=== PATIENT | female | born 1985 | race Caucasian/White ===

== ENCOUNTER 2019-07-28 00:39 | Outpatient (CLI) | payer OTHER, SELFPAY ==
[2019-07-28 16:19] LABS: SARS-CoV-2 RNA PCR Negative
== END 2019-07-28 00:40 | disposition home or self-care (01) ==
LOC: ANHCOVIDDT 00:39
PROVIDERS: PCP Family Medicine; Visit Provider Internal Medicine Gastroenterology
DX: Z01.818 Encounter for other preprocedural examination (principal); Z11.59 Encounter for screening for other viral diseases
CPT/HCPCS: 87635; C9803; U0003

== ENCOUNTER 2019-07-31 00:48 | Day surgery (SDC) | payer OTHER, SELFPAY ==
[2019-07-24 12:42] VITALS: BMI 36.3
--- NOTE | 2019-07-31 08:13 | WPDANESEPPF ---
Anes - Initial Pre Proc Eval Procedure: Operation Date: 07/31/19 11:00 Proposed Procedures p Colonoscopy - Jose Martin Penaloza MD Date/Time: 07/31/19 08:13 Surgeon: Jose Martin Penaloza MD Pre Op Diagnosis: Rectal Bleeding Patient Data Age: 34 Gender: F Height: 1.91 m Weight: 132 kg Allergies Allergy/AdvReac Type Severity Reaction Status Date / Time No Known Allergies Allergy Verified 07/24/19 12:44 Home Medications Medication Instructions Recorded Confirmed Type labetalol 200 mg tablet 400 mg PO Q12H #120 tablet 12/14/18 07/24/19 Rx sertraline 100 mg tablet 100 mg PO DAILY #30 tablet 04/02/19 07/24/19 Rx peg 3350-electrolytes 236 240 ml PO Q10M #4000 ml 07/27/19 Rx gram-22.74 gram-6.74 gram-5.86 gram solution Patient hx anesthesia problems: none Family hx anesthesia problems: none PMFSH Past Medical History Medical History (Updated 07/31/19 @ 08:14 by Dennis Duff MD) Depression Essential (primary) hypertension Generalized anxiety disorder GERD without esophagitis Obesity Vitamin D deficiency Social History Social History Smoking status: Never smoker Second hand tobacco smoke exposure: No Alcohol intake: current Substance use type: does not use Additional living arrangements comments: and 2 sons 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 Questions were solicited and answers provided to the satisfaction of the patient/family/POA.
[2019-07-31 09:52] VITALS: BP 144/84; PULSE 87; RESP 18; TEMP 36.1; O2SAT 98
[2019-07-31] MEDS: LACTATED RINGERS 1,000 ML 150 ML IV CONT (10:07)
--- NOTE | 2019-07-31 11:11 | SUR.PREOP ---
Patient informed that Dr Salinas is running behind. Patient states her family is not in the parking lot. She stated that she will text her ride and let him know.
--- NOTE | 2019-07-31 11:39 | WPDHPUPDATE1 ---
History and Physical Update Update Date/Time: 07/31/19 11:39 History and Physical has been reviewed, including an updated exam of the patient. There are NO changes in the patient's condition. Risks, benefits, and alternatives have been discussed and questions answered. Patient agrees to proceed with procedure.
--- NOTE | 2019-07-31 11:48 | SUR.OPER ---
1138 UPDATED FAMILY (NICOLAS) TAKING PATIENT TO THE PROCEDURE ROOM
[2019-07-31 12:08] VITALS: BP 95/51; PULSE 66; RESP 16; O2SAT 98
[2019-07-31 12:18] VITALS: BP 100/61; PULSE 65; RESP 18; O2SAT 99
[2019-07-31 12:28] VITALS: BP 122/71; PULSE 67; RESP 18; O2SAT 99
== END 2019-07-31 12:34 | disposition home or self-care (01) ==
PROVIDERS: PCP Family Medicine; Visit Provider Internal Medicine Gastroenterology
PROC: 0DJD8ZZ Inspection of Lower Intestinal Tract, Via Natural or Artificial Opening Endoscopic (ICD-10-PCS; CPT 45378; principal; 2019-07-31 11:00)
DX: K62.5 Hemorrhage of anus and rectum (principal); D12.3 Benign neoplasm of transverse colon; K64.8 Other hemorrhoids; I10 Essential (primary) hypertension; K21.9 Gastro-esophageal reflux disease without esophagitis; E55.9 Vitamin D deficiency, unspecified; F41.1 Generalized anxiety disorder; F32.9 Major depressive disorder, single episode, unspecified; E66.9 Obesity, unspecified; Z68.36 Body mass index [BMI] 36.0-36.9, adult
CPT/HCPCS: 45385; 88305; J2704; J7120

== ENCOUNTER 2021-09-10 08:14 | Outpatient (CLI) | payer OTHER, SELFPAY ==
[2021-09-10 19:07] LABS: Basophils Absolute Auto 0.1 K/mm3 (0.0-0.1); Basophils Percent Auto 0.9 % (0.2-1.2); Eosinophils Absolute Auto 0.4 K/mm3 (0-0.3); Eosinophils Percent Auto 4.6 % (0-4.4); Hematocrit 40.5 % (37.0-47.0); Hemoglobin 12.5 g/dL (12.0-15.0); Immature Granulocyte Absolute 0.03 K/mm3 (0.00-0.031); Immature Granulocyte Percent A 0.4 % (0-0.5); Lymphocytes Absolute Auto 1.83 K/mm3 (0.9-3.2); Lymphocytes Percent Auto 22.5 % (18.3-44.2); Mean Corpuscular HGB Conc 30.9 g/dl (32-36); Mean Corpuscular Hemoglobin 25.8 pg (26-34); Mean Corpuscular Volume 83.5 fl (80-100); Mean Platelet Volume 10.7 fl (7.4-10.4); Monocytes Absolute Auto 0.5 K/mm3 (0.1-0.6); Monocytes Percent Auto 6.3 % (2.6-8.5); Neutrophils Absolute Auto 5.3 K/mm3 (1.3-6.7); Neutrophils Percent Auto 65.3 % (45.5-73.1); Platelet Count Result 297 k/mm3 (150-375); Red Blood Count 4.85 M/mm3 (4.2-5.4); Red Cell Distribution Width 14.2 % (11.5-14.5); White Blood Count 8.1 K/mm3 (4.5-10.0)
[2021-09-10 19:32] LABS: Sodium 142 mmol/L (137-145)
[2021-09-10 19:33] LABS: Alanine Aminotransferase 13 U/L (6-35); Albumin Level 4.2 g/dL (3.5-5.1); Alkaline Phosphatase 111 U/L (38-126); Anion Gap 9 mmol/L (8-16); Aspartate Amino Transferase 31 U/L (14-36); Bilirubin,Total 0.6 mg/dL (0.2-1.3); Blood Urea Nitrogen 16 mg/dL (7-17); Calcium 8.5 mg/dL (8.4-10.2); Carbon Dioxide 27 mmol/L (22-30); Chloride 106 mmol/L (98-107); Estimated Glomerular Filt Rate > 60; Glucose 112 mg/dL (65-110); Potassium 4.1 mmol/L (3.4-5.0)
== END 2021-09-10 08:15 | disposition home or self-care (01) ==
PROVIDERS: PCP Family Medicine; Visit Provider Nurse Practitioner Family
DX: I10 Essential (primary) hypertension (principal); Z00.00 Encounter for general adult medical examination without abnormal findings
CPT/HCPCS: 36415; 80053; 84443; 85025

== ENCOUNTER 2023-04-29 15:10 | Outpatient (CLI) | payer OTHER, SELFPAY ==
[2023-04-29 18:06] LABS: Appearance Urine Cloudy (Clear); Bacteria Urine 1+ /hpf; Bilirubin Urine Negative (Negative); Blood Urine 2+ (Negative); Color Urine Dark Yellow (Yellow); Glucose Urine UA Negative (Negative); Ketones Urine Trace mg/dL (Negative); Leukocyte Esterase Ur 3+ LEU/UL (Negative); Need Manual Microscopic Reviewed; Nitrate Urine Negative (Negative); Protein Urine Trace mg/dL (Negative); RBC Urine 21-50 /hpf (0-2); Specific Grav Ur 1.027 (1.001-1.035); Squamous Epithelial Cell Urine Few /hpf (Few); WBC Urine >100 /hpf (0-3); pH Urine 5.5 (5.0-9.0)
[2023-04-29 18:08] LABS: Add Urine Microscopic? YES
== END 2023-04-29 15:11 | disposition home or self-care (01) ==
PROVIDERS: PCP Family Medicine; Visit Provider Nurse Practitioner Family
DX: R30.0 Dysuria (principal)
CPT/HCPCS: 81001

== ENCOUNTER 2024-04-06 08:21 | Outpatient (CLI) | payer OTHER, SELFPAY ==
[2024-04-06 11:24] LABS: Basophils Absolute Auto 0.1 K/mm3 (0.0-0.1); Basophils Percent Auto 0.8 % (0.2-1.2); Eosinophils Absolute Auto 0.3 K/mm3 (0-0.3); Eosinophils Percent Auto 4.5 % (0-4.4); Hematocrit 40.6 % (37.0-47.0); Hemoglobin 12.6 g/dL (12.0-15.0); Immature Granulocyte Absolute 0.02 K/mm3 (0.00-0.031); Immature Granulocyte Percent A 0.3 % (0-0.5); Lymphocytes Absolute Auto 1.86 K/mm3 (0.9-3.2); Lymphocytes Percent Auto 26.1 % (18.3-44.2); Mean Corpuscular Hemoglobin 25.2 pg (26-34); Mean Corpuscular Volume 81.2 fl (80-100); Mean Platelet Volume 10.4 fl (7.4-10.4); Monocytes Absolute Auto 0.4 K/mm3 (0.1-0.6); Monocytes Percent Auto 5.2 % (2.6-8.5); Neutrophils Absolute Auto 4.5 K/mm3 (1.3-6.7); Neutrophils Percent Auto 63.1 % (45.5-73.1); Platelet Count Result 304 k/mm3 (150-375); Red Cell Distribution Width 14.3 % (11.5-14.5); White Blood Count 7.1 K/mm3 (4.5-10.0)
[2024-04-06 11:32] LABS: Alanine Aminotransferase 13 U/L (6-35); Alkaline Phosphatase 96 U/L (38-126); Anion Gap 8 mmol/L (4-12); Aspartate Amino Transferase 43 U/L (14-36); Bilirubin,Total 0.7 mg/dL (0.2-1.3); Blood Urea Nitrogen 15 mg/dL (7-17); Calcium 8.7 mg/dL (8.4-10.2); Carbon Dioxide 26 mmol/L (22-30); Chloride 106 mmol/L (98-107); Cholesterol 120 mg/dL (0-200); Estimated Glomerular Filt Rate > 60; Glucose 87 mg/dL (65-110); HDL Direct 37 mg/dL; Potassium 4.1 mmol/L (3.4-5.0); Sodium 140 mmol/L (137-145); Triglycerides 117 mg/dL (<150)
[2024-04-06 11:42] LABS: LDL Cholesterol Direct 56 mg/dL
[2024-04-06 11:53] LABS: Vitamin D 25 Hydroxy 17.8 ng/mL
[2024-04-06 16:14] LABS: Hemoglobin A1C 5.5 % (<5.7)
== END 2024-04-06 08:22 | disposition home or self-care (01) ==
PROVIDERS: PCP Family Medicine; Visit Provider Family Medicine
DX: Z00.00 Encounter for general adult medical examination without abnormal findings (principal); E78.5 Hyperlipidemia, unspecified; F32.9 Major depressive disorder, single episode, unspecified; K59.00 Constipation, unspecified; I10 Essential (primary) hypertension; E53.8 Deficiency of other specified B group vitamins
CPT/HCPCS: 36415; 80053; 80061; 82306; 82607; 83036; 84443; 85025

== ENCOUNTER 2024-08-17 00:28 | Day surgery (SDC) | payer OTHER, SELFPAY ==
[2024-07-30 08:59] VITALS: BMI 40.0
--- OUTSIDE RECORDS SUMMARY | 2024-08-17 00:32 | XMS_ITS | Clinical Summary ---
Author Organization [employer] [facility] Address [address] [place], [place] [address] Phone Care Team Providers Care Adult Basic Education Teacher Name Role Phone Surendra Gaytan MD Primary Care Provider [phone] Allergies No known active allergies Medications METOPROLOL SUCCINATE (TOPROL XL ORAL) Take by mouth. Active OTHER diuretic Active NORGESTIMATE-ET HINYL ESTRADIOL (ORTHO TRI-CYCLEN, 28, ORAL) Take by mouth. Active Active Problems No known active problems Family History Relation Name Status Comments Father Alive Mother Alive Social History Tobacco Use Types Packs/Day Years Used Date Smoking Tobacco: Never Smokeless Tobacco: Never Alcohol Use Standard Drinks/Week Comments No 0 (1 standard drink = 0.6 oz pur e alcohol) Comments No Sex and Gender Information Value Date Recorded Sex Assigned at Not on file Legal Sex Female 1:37 PM MAKEUP SALES ADVISOR Gender Identity Not on file Sexual Orientation Not on file Last Filed Vital Signs Vital Sign Reading Time Taken Comments Blood Pressure 157/110 04/03/2012 1:55 PM MAKEUP SALES ADVISOR Pulse 93 04/03/2012 1:55 PM MAKEUP SALES ADVISOR Temperature 37.1 C (98.8 F) 04/03/2012 1:55 PM MAKEUP SALES ADVISOR Respiratory Rate 16 04/03/2012 1:55 PM MAKEUP SALES ADVISOR Oxygen Saturation 98% 04/03/2012 1:55 PM MAKEUP SALES ADVISOR Inhaled Oxygen Concentration - - Weight 97.5 kg (215 lb) 04/03/2012 1:55 PM MAKEUP SALES ADVISOR Height 190.5 cm (6' 3) 04/03/2012 1:55 PM MAKEUP SALES ADVISOR Body Mass Index 26.87 04/03/2012 1:55 PM MAKEUP SALES ADVISOR Plan of Treatment Health Maintenance Due Date Last Done Comments DTAP/TDAP/TD VACCINES (1 - Tdap) 2006 HEPATITIS B VACCINES (1 of 3 - 19+ 3-dose series) 2006 HPV/Cotest (21-29) 02/24/2008 CERVICAL CANCER SCREENING 2017 HPV/Cotest (30-65) 2017 PAP SMEAR 2017 INFLUENZA VACCINE (#1) 2024 HPV VACCINES Aged Out No longer eligi ble based on patient's age to complete this topic Insurance BS FEDERAL Care Teams Adult Basic Education Teacher Relationship Specialty Start Date End Date Surendra Gaytan MD PCP - General Family Practice 04/03/12
[2024-08-17 07:47] VITALS: BP 137/92; PULSE 82; RESP 20; TEMP 35.9; O2SAT 100; BMI 38.9
[2024-08-17 07:51] LABS: BEDSIDEPREGUCG Negative (Negative)
[2024-08-17] MEDS: LACTATED RINGERS 1,000 ML 150 ML IV CONT (08:05)
--- NOTE | 2024-08-17 08:19 | P.PNAN_ITS ---
Anes - Initial Pre Proc Eval Procedure: Operation Date: 08/17/24 08:30 Proposed Procedures p Screening Colonoscopy - Jose Martin Penaloza MD Date/Time: 08/17/24 08:19 Surgeon: Jose Martin Penaloza MD Pre Op Diagnosis: neoplasm screening Patient Data Age: 39 Gender: F Height: 1.91 m Weight: 141.5 kg Last Vital Signs Temp 35.9 C L 08/17/24 07:47 Pulse 82 08/17/24 07:47 Resp 20 08/17/24 07:47 BP 137/92 H 08/17/24 07:47 Pulse Ox 100 08/17/24 07:47 O2 Del Method Room Air 08/17/24 07:47 Allergies Allergy/AdvReac Type Severity Reaction Status Date / Time No Known Allergies Allergy Verified 07/30/24 09:09 Home Medications ?Medication ?Instructions ?Recorded ?Confirmed ?Type multivitamin (Daily Multi-Vitamin 1 tablet PO DAILY 02/27/21 08/17/24 History tablet) cholecalciferol (vitamin D3) 1,250 1,250 mcg PO WEEKLY #12 caps 04/13/24 08/17/24 Rx mcg (50,000 unit) capsule famotidine 20 mg tablet 20 mg PO DAILY PRN heartburn #90 04/13/24 08/17/24 Rx tabs lisinopril 20 1 tablet PO DAILY #90 tabs 04/13/24 08/17/24 Rx mg-hydrochlorothiazide 12.5 mg tablet tirzepatide (weight loss) 7.5 7.5 mg (0.5 mL) subcut WEEKLY #2 mL 08/13/24 08/17/24 Rx mg/0.5 mL subcutaneous pen injector (Zepbound) Laboratory Tests 08/17/24 07:47 POC Urine HCG, Qual Negative (Negative) Patient hx anesthesia problems: none Family hx anesthesia problems: none Results Review: All pre-operative results and documents have been reviewed as part of the pre- operative evaluation. [facility] Past Medical History Medical History Family history of breast cancer grandmother and aunt Prediabetes Depression Essential (primary) hypertension GERD without esophagitis Generalized anxiety disorder Vitamin D deficiency (~03/2024) Family History Family History Father Hypertension Mother Hypertension Other Diabetes mellitus Family history of malignant neoplasm of breast Malignant neoplasm of prostate Social History Social History Social History: , has 2 children. Lives in [place]. 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 Gender identity (if verbalized by the patient): Female Sexual Orientation (if Verbalized by the Patient): Straight or Heterosexual Spiritual care concerns: No Agree to blood products: Yes Anes - Eval Final PreProcedure Day of Procedure 08/17/24 08:19 Patient weight: morbidly obese Heart: regular rate and rhythm Lungs: clear to auscultation Airway: Mallampati scale class II Neurological: alert and oriented Last oral intake: >/= 8 hours ASA classification: III Emergent: no Anesthetic plan: proceed Anesthesia type and monitoring: general GIVS and standard monitoring Results Review: All pre-operative results and documents have been reviewed as part of the pre-operative evaluation. Informed Consent: The patient's anesthetic plan and its attendant risks and benefits were discussed with the patient/family/POA. Questions were solicited and answers provided to the satisfaction of the patient/family/POA.
--- NOTE | 2024-08-17 08:32 | P.HP_ITS ---
History of Present Illness History of Present Illness Consent: Risks, benefits, and alternatives have been discussed and questions answered. Patient agrees to proceed with procedure. Chief complaint: neoplasm screening Narrative: Joelle Virgen is a 39 year old female with colon polyp in 2019 Review of Systems Review of Systems: All systems reviewed & are unremarkable except as noted in HPI and below PMFSH Past Medical History Medical History (Updated 08/17/24 @ 08:33 by Jose Martin Penaloza MD) Adenomatous colon polyp Family history of breast cancer grandmother and aunt Prediabetes Depression Essential (primary) hypertension GERD without esophagitis Generalized anxiety disorder Vitamin D deficiency (~03/2024) Family History Family History Father Hypertension Mother Hypertension Other Diabetes mellitus Family history of malignant neoplasm of breast Malignant neoplasm of prostate Social History Social History Social History: , has 2 children. Lives in [place]. 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 Gender identity (if verbalized by the patient): Female Sexual Orientation (if Verbalized by the Patient): Straight or Heterosexual Spiritual care concerns: No Agree to blood products: Yes Meds Home Medications and Allergies Home Medications ?Medication ?Instructions ?Recorded ?Confirmed ?Type multivitamin (Daily Multi-Vitamin 1 tablet PO DAILY 02/27/21 08/17/24 History tablet) cholecalciferol (vitamin D3) 1,250 1,250 mcg PO WEEKLY #12 caps 04/13/24 08/17/24 Rx mcg (50,000 unit) capsule famotidine 20 mg tablet 20 mg PO DAILY PRN heartburn #90 03/07/25 07/11/25 Rx tabs lisinopril 20 1 tablet PO DAILY #90 tabs 04/13/24 08/17/24 Rx mg-hydrochlorothiazide 12.5 mg tablet tirzepatide (weight loss) 7.5 7.5 mg (0.5 mL) subcut WEEKLY #2 mL 08/13/24 08/17/24 Rx mg/0.5 mL subcutaneous pen injector (Zepbound) Allergies Allergy/AdvReac Type Severity Reaction Status Date / Time No Known Allergies Allergy Verified 07/30/24 09:09 Vital Signs Vital Signs - 24 hr 08/17/24 07:47 Temperature 96.7 F L Pulse Rate 82 Respiratory Rate 20 Blood Pressure 137/92 H Pulse Oximetry 100 Oxygen Delivery Room Air Exam Const: General: comfortable and no acute distress HENMT: Face/Nose/Sinus: Normal nares present Eyes: General: appearance normal, both eyes and all related structures Neck: Neck: no JVD Resp: Auscultation: clear to auscultation bilaterally Cardio: Rate: regular rate Rhythm: regular rhythm GI: Inspection: non-distended GI Palp: Yes Soft to palpation Skin: General skin exam: normal color Neuro: General: gait normal Speech: normal speech Extrem: General: normal to inspection Psych: Mental Status: mental status grossly normal Assessment and Plan Assessment and plan (1) Adenomatous colon polyp: Code(s): D12.6 - Benign neoplasm of colon, unspecified Status: Acute Assessment and Plan: colonoscopy
[2024-08-17 08:51] VITALS: BP 80/40; PULSE 72; RESP 15; O2SAT 99
[2024-08-17 09:01] VITALS: BP 101/44; PULSE 66; RESP 16; O2SAT 100
[2024-08-17 09:11] VITALS: BP 99/58; PULSE 70; RESP 14; O2SAT 99
== END 2024-08-17 09:28 | disposition home or self-care (01) ==
PROVIDERS: Anesthesiology; PCP Family Medicine; Referring Provider Internal Medicine Gastroenterology; Visit Provider Internal Medicine Gastroenterology
PROC: 0DJD8ZZ Inspection of Lower Intestinal Tract, Via Natural or Artificial Opening Endoscopic (ICD-10-PCS; CPT 45378; principal; 2024-08-17 08:30)
DX: Z12.11 Encounter for screening for malignant neoplasm of colon (principal); K64.8 Other hemorrhoids; I10 Essential (primary) hypertension; K21.9 Gastro-esophageal reflux disease without esophagitis; E55.9 Vitamin D deficiency, unspecified; R73.03 Prediabetes; F32.A Depression, unspecified; F41.9 Anxiety disorder, unspecified; E66.01 Morbid (severe) obesity due to excess calories; Z68.39 Body mass index [BMI] 39.0-39.9, adult; Z79.85 Long-term (current) use of injectable non-insulin antidiabetic drugs; Z86.0100 Personal history of colon polyps, unspecified; Z80.3 Family history of malignant neoplasm of breast; Z80.42 Family history of malignant neoplasm of prostate
CPT/HCPCS: 45378; J2003; J2704; J7120

== ENCOUNTER 2024-09-19 08:05 | Outpatient (CLI) | payer OTHER, SELFPAY ==
--- OUTSIDE RECORDS SUMMARY | 2024-09-19 08:07 | XMS_ITS | Clinical Summary ---
Author Organization [employer] [facility] Address [address] [place], [place] [address] Phone Care Team Providers Care Visual C Developer Name Role Phone Surendra Gaytan MD Primary Care Provider [phone] Allergies No known active allergies Medications METOPROLOL [...] on file Legal Sex Female 1:37 PM FUN HOUSE ATTENDANT Gender Identity Not on file Sexual Orientation Not on file Last Filed Vital Signs Vital Sign Reading Time Taken Comments Blood Pressure 157/110 04/03/2012 1:55 PM FUN HOUSE ATTENDANT Pulse 93 04/03/2012 1:55 PM FUN HOUSE ATTENDANT Temperature 37.1 C (98.8 F) 04/03/2012 1:55 PM FUN HOUSE ATTENDANT Respiratory Rate 16 04/03/2012 1:55 PM FUN HOUSE ATTENDANT Oxygen Saturation 98% 04/03/2012 1:55 PM FUN HOUSE ATTENDANT Inhaled Oxygen Concentration - - Weight 97.5 kg (215 lb) 04/03/2012 1:55 PM FUN HOUSE ATTENDANT Height 190.5 cm (6' 3) 04/03/2012 1:55 PM FUN HOUSE ATTENDANT Body Mass Index 26.87 04/03/2012 1:55 PM FUN HOUSE ATTENDANT Plan of Treatment Health Maintenance Due Date Last Done Comments HPV VACCINES (1 - 3-dose series) 2002 DTAP/TDAP/TD VACCINES (1 - Tdap) 2006 HEPATITIS B VACCINES (1 of 3 - 19+ 3-dose series) 02/07 HPV/Cotest (21-29) 02/24/2008 CERVICAL CANCER SCREENING 2017 HPV/Cotest (30-65) 2017 PAP SMEAR 2017 INFLUENZA VACCINE (#1) [address] [place] [address] [place] [address] [employer] Care Teams Visual C Developer Relationship Specialty Start Date End Date Surendra Gaytan MD PCP - General Family Practice 04/03/12
[2024-09-19 13:24] LABS: Hematocrit 44.2 % (37.0-47.0); Hemoglobin 13.9 g/dL (12.0-15.0); Immature Granulocyte Percent A 0.5 % (0-0.5); Lymphocytes Absolute Auto 1.95 K/mm3 (0.9-3.2); Mean Corpuscular HGB Conc 31.4 g/dl (32-36); Mean Corpuscular Hemoglobin 26.6 pg (26-34); Mean Corpuscular Volume 84.5 fl (80-100); Nucleated Red Blood Cells Absolute Auto 0.000 K/mm3 (0.0-0.012); Nucleated Red Blood Cells Perc 0.0 % (0.0-0.2); Platelet Count Result 305 k/mm3 (150-375); Red Blood Count 5.23 M/mm3 (4.2-5.4); White Blood Count 6.1 K/mm3 (4.5-10.0)
[2024-09-19 13:35] LABS: Alanine Aminotransferase 14 U/L (6-35); Albumin Level 4.4 g/dL (3.5-5.1); Alkaline Phosphatase 63 U/L (38-126); Anion Gap 10 mmol/L (4-12); Aspartate Amino Transferase 37 U/L (14-36); Bilirubin,Total 1.1 mg/dL (0.2-1.3); Blood Urea Nitrogen 11 mg/dL (7-17); Calcium 9.9 mg/dL (8.4-10.2); Carbon Dioxide 24 mmol/L (22-30); Chloride 106 mmol/L (98-107); Estimated Glomerular Filt Rate > 60; Glucose 61 mg/dL (65-110); Potassium 4.2 mmol/L (3.4-5.0); Sodium 140 mmol/L (137-145); Total Protein 7.5 g/dL (6.3-8.2)
[2024-09-19 17:49] LABS: Hemoglobin A1C 5.3 % (<5.7)
== END 2024-09-19 08:06 | disposition home or self-care (01) ==
LOC: ANHGOSHLAB 08:05
PROVIDERS: PCP Family Medicine; Visit Provider Nurse Practitioner Family
DX: R73.03 Prediabetes (principal); E55.9 Vitamin D deficiency, unspecified; I10 Essential (primary) hypertension
CPT/HCPCS: 36415; 80053; 82306; 83036; 85025